=== PATIENT | female | born 1970 | race Caucasian/White ===

== ENCOUNTER 2017-11-10 16:23 | Emergency (ER) | payer OTHER ==
[~2017-11-10] VITALS: Ht 167.6 cm; Wt 90.7 kg
[~2017-11-10 16:23] MED LIST: FLOMAX0.4 MG PO; HYDROCODON-ACE1 EAC7 PO; MELATONIN10 M2 PO; ZOFRAN ODT4 MG PO
[2017-11-10] MEDS ORDERED: NEURONTIN 300300 M1 PO (16:42)
[2017-11-10 17:03] LABS: ABSOLUTE BASOPHILS 0.1 thou/uL (0.0-0.2); ABSOLUTE EOSINOPHILS 0.4 thou/uL (0.0-0.7); ABSOLUTE LYMPHOCYTES 2.8 thou/uL (0.8-5.3); ABSOLUTE MONOCYTES 0.9 thou/uL (0.0-1.2); ABSOLUTE NEUTROPHILS 6.5 thou/uL (1.6-8.1); BASOPHILS 0.8 %; EOSINOPHILS 3.7 %; HEMOGLOBIN 13.5 gm/dL (12.0-15.0); LYMPHOCYTES 26.2 %; MCH 26.2 pg (26.0-34.0); MCHC 32.8 g/dL (28.0-37.0); MCV 79.7 fL (80.0-100.0); MONOCYTES 8.2 %; MPV 7.4 fl. (7.2-11.1); NUCLEATED RBCS 0 /100WBC; PLATELET COUNT* 278 thou/uL (150-400); POLYS 61.1 %; RBC 5.15 mil/uL (4.20-5.00); RDW-CV 17.7 % (10.5-14.5); WBC 10.7 thou/uL (4.0-11.0)
[2017-11-10 17:10] LABS: CALCIUM 9.4 mg/dL (8.5-10.1); CREATININE 0.9 mg/dL (0.6-1.3); POTASSIUM 4.1 mmol/L (3.5-5.1)
[2017-11-10 17:15] LABS: ALBUMIN 3.6 g/dL (3.4-5.0); TOTAL BILIRUBIN 0.2 mg/dL (<0.1-1.0); TOTAL PROTEIN 7.4 g/dL (6.4-8.2)
[2017-11-10 17:32] LABS: URINE BILIRUBIN NEGATIVE (Negative); URINE BLOOD 3+ (Negative); URINE COLOR YELLOW; URINE GLUCOSE-RANDOM NEGATIVE (Negative); URINE KETONES NEGATIVE (Negative); URINE LEUKOCYTES-REFLEX NEGATIVE (Negative); URINE NITRITE-REFLEX NEGATIVE (Negative); URINE PROTEIN NEGATIVE (Negative); URINE SPECIFIC GRAVITY 1.015 (1.005-1.030); URINE UROBILINOGEN 0.2 E.U./dl (0.2-1.0)
[2017-11-10 17:36] LABS: URINE CLARITY HAZY
[2017-11-10 17:40] LABS: BACTERIA-REFLEX 1-9 Few /HPF (None Seen); CASTS None Seen /LPF (None Seen); SQUAMOUS >10 Many /LPF (0-3); URINE RBC >20 Many /HPF (0-2); URINE WBC-REFLEX 0-5 Rare /HPF (0-5)
[2017-11-10 17:41] LABS: AMORPHOUS URATES Moderate /LPF (None Seen)
[2017-11-10] MEDS ORDERED: NORCO 5-325 TA1 EAC1 PO (18:50)
[2017-11-10 19:24] VITALS: BP 182/77
== END 2017-11-10 19:25 | disposition home or self-care (01) ==
LOC: M.ERS 16:23
PROVIDERS: Nurse Practitioner Family
DX: N20.0 Calculus of kidney (principal); F17.210 Nicotine dependence, cigarettes, uncomplicated

== ENCOUNTER 2018-09-06 13:38 | Emergency (ER) | payer OTHER ==
[~2018-09-06] VITALS: Ht 167.6 cm; Wt 90.7 kg
[~2018-09-06 13:38] MED LIST changes: +NEURONTIN 300300 M1 PO; +NORCO 5-325 TA1 EAC1 PO
[2018-09-06] MEDS ORDERED: ZANTAC 150MG T150 MG PO (13:57)
[2018-09-06 14:23] LABS: ABSOLUTE BASOPHILS 0.1 thou/uL (0.0-0.2); ABSOLUTE EOSINOPHILS 0.4 thou/uL (0.0-0.7); ABSOLUTE LYMPHOCYTES 3.7 thou/uL (0.8-5.3); ABSOLUTE MONOCYTES 1.1 thou/uL (0.0-1.2); ABSOLUTE NEUTROPHILS 6.8 thou/uL (1.6-8.1); EOSINOPHILS 3.6 %; HEMATOCRIT 45.6 % (37.0-47.0); HEMOGLOBIN 15.7 gm/dL (12.0-15.0); LYMPHOCYTES 30.3 %; MCH 29.8 pg (26.0-34.0); MCHC 34.4 g/dL (28.0-37.0); MCV 86.7 fL (80.0-100.0); MONOCYTES 9.1 %; MPV 8.1 fl. (7.2-11.1); NUCLEATED RBCS 0 /100WBC; PLATELET COUNT* 275 thou/uL (150-400); RBC 5.26 mil/uL (4.20-5.00); RDW-CV 13.3 % (10.5-14.5); WBC 12.2 thou/uL (4.0-11.0)
[2018-09-06 14:36] LABS: ALBUMIN 3.8 g/dL (3.4-5.0); CALCIUM 9.3 mg/dL (8.5-10.1); CREATININE 0.8 mg/dL (0.6-1.3); POTASSIUM 4.7 mmol/L (3.5-5.1); TOTAL BILIRUBIN 0.2 mg/dL (<0.1-1.0); TOTAL PROTEIN 7.9 g/dL (6.4-8.2)
[2018-09-06 15:59] LABS: URINE BILIRUBIN NEGATIVE (Negative); URINE BLOOD 3+ (Negative); URINE CLARITY CLEAR; URINE COLOR YELLOW; URINE GLUCOSE-RANDOM NEGATIVE (Negative); URINE KETONES NEGATIVE (Negative); URINE LEUKOCYTES-REFLEX NEGATIVE (Negative); URINE NITRITE-REFLEX NEGATIVE (Negative); URINE PROTEIN NEGATIVE (Negative); URINE SPECIFIC GRAVITY 1.015 (1.005-1.030); URINE UROBILINOGEN 0.2 E.U./dl (0.2-1.0)
[2018-09-06 16:09] LABS: SQUAMOUS 4-10 Moderate /LPF (0-3)
[2018-09-06 16:10] LABS: CASTS None Seen /LPF (None Seen); CRYSTALS None Seen /LPF (None Seen); MUCUS 4-6 Moderate strn/LPF (None Seen); URINE RBC >20 Many /HPF (0-2); URINE WBC-REFLEX 0-5 Rare /HPF (0-5)
[2018-09-06] MEDS ORDERED: NORCO 10-325 T1 EACH PO (16:27)
[2018-09-06] MEDS ORDERED: PHENERGAN 25 MG25 M1 PO (16:27)
[2018-09-06] MEDS ORDERED: NAPROSYN500 MG PO (16:27)
[2018-09-06] MEDS ORDERED: CIPRO500 MG PO (16:27)
[2018-09-06 16:45] VITALS: BP 118/74
== END 2018-09-06 16:46 | disposition home or self-care (01) ==
LOC: M.ERS 13:38
PROVIDERS: Nurse Practitioner Family
DX: N13.2 Hydronephrosis with renal and ureteral calculous obstruction (principal); F17.200 Nicotine dependence, unspecified, uncomplicated; R11.10 Vomiting, unspecified

== ENCOUNTER 2021-01-21 06:56 | Emergency (ER) | payer OTHER ==
[~2021-01-21] VITALS: Ht 167.6 cm; Wt 69.8 kg
[~2021-01-21 06:56] MED LIST changes: +CARVEDILOL12.5 MG PO; +CIPRO500 MG PO; +GENTAK5 ML INTRAOCULR; +HYDROCODONE-APA1 TA1 PO; +IBUPROFEN 800800 M1 PO; +IBUPROFEN 800800 MG PO; +LISINOPRIL10 MG PO; +NAPROSYN500 MG PO; +NEURONTIN 400400 M1 PO; +NORCO 10-325 T1 EACH PO; +NORCO 5-325 TA1 EAC2 PO; +NORCO 5-325 TA1 EACH PO; +ONDANSETRON HCL4 M2 PO; +PHENERGAN 25 MG25 M1 PO; +ZANTAC 150MG T150 MG PO
[2021-01-21] MEDS ORDERED: CARVEDILOL25 MG PO (07:16)
[2021-01-21 09:13] LABS: ABSOLUTE BASOPHILS 0.1 thou/uL (0.0-0.2); ABSOLUTE EOSINOPHILS 0.5 thou/uL (0.0-0.7); ABSOLUTE LYMPHOCYTES 4.1 thou/uL (0.8-5.3); ABSOLUTE MONOCYTES 0.8 thou/uL (0.0-1.2); ABSOLUTE NEUTROPHILS 6.1 thou/uL (1.6-8.1); BASOPHILS 0.6 %; EOSINOPHILS 4.4 %; HEMATOCRIT 44.1 % (37.0-47.0); LYMPHOCYTES 35.3 %; MCH 30.2 pg (26.0-34.0); MCV 88.8 fL (80.0-100.0); MPV 7.4 fl. (7.2-11.1); NUCLEATED RBCS 0 /100WBC; PLATELET COUNT* 224 thou/uL (150-400); POLYS 52.7 %; RBC 4.96 mil/uL (4.20-5.00); RDW-CV 12.8 % (10.5-14.5); WBC 11.6 thou/uL (4.0-11.0)
[2021-01-21 09:22] LABS: CREATININE 1.3 mg/dL (0.6-1.3)
[2021-01-21 09:26] LABS: ALBUMIN 4.2 g/dL (3.4-5.0); TOTAL BILIRUBIN 0.4 mg/dL (<0.1-1.0); TOTAL PROTEIN 7.8 g/dL (6.4-8.2)
[2021-01-21 10:35] LABS: URINE BILIRUBIN NEGATIVE (Negative); URINE BLOOD TRACE (Negative); URINE CLARITY CLEAR; URINE COLOR YELLOW; URINE GLUCOSE-RANDOM NEGATIVE (Negative); URINE KETONES NEGATIVE (Negative); URINE LEUKOCYTES-REFLEX NEGATIVE (Negative); URINE NITRITE-REFLEX NEGATIVE (Negative); URINE PROTEIN 1+ (Negative); URINE UROBILINOGEN 0.2 E.U./dl (0.2-1.0)
[2021-01-21] MEDS ORDERED: ZOFRAN ODT4 MG DISSOLVE (11:13)
[2021-01-21] MEDS ORDERED: HYDROCODON-ACE1 EAC7 PO (11:13)
[2021-01-21 11:30] VITALS: BP 105/60
--- NOTE | 2021-01-22 10:49 | EKG ---
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
== END 2021-01-21 11:30 | disposition home or self-care (01) ==
LOC: M.ERS 06:56
PROVIDERS: Emergency Medicine Emergency Medical Services
DX: R10.9 Unspecified abdominal pain (principal); M54.5 Low back pain; R11.0 Nausea; Z87.442 Personal history of urinary calculi; Z98.890 Other specified postprocedural states; Z98.51 Tubal ligation status; Z90.89 Acquired absence of other organs; Z88.1 Allergy status to other antibiotic agents

== ENCOUNTER 2021-04-01 14:53 | Emergency (ER) | payer OTHER ==
[~2021-04-01] VITALS: Ht 167.6 cm; Wt 67.1 kg
[~2021-04-01 14:53] MED LIST changes: +CARVEDILOL25 MG PO; +ZOFRAN ODT4 MG DISSOLVE
[2021-04-01] MEDS ORDERED: LIPITOR 20 MG T20 M1 PO (15:22)
[2021-04-01 16:49] VITALS: BP 130/75
== END 2021-04-01 16:50 | disposition home or self-care (01) ==
LOC: M.ERS 14:53
DX: S93.402A Sprain of unspecified ligament of left ankle, initial encounter (principal); Z88.1 Allergy status to other antibiotic agents; Z79.899 Other long term (current) drug therapy; Z98.51 Tubal ligation status; Z98.890 Other specified postprocedural states; X50.1XXA Overexertion from prolonged static or awkward postures, initial encounter; Y93.89 Activity, other specified; Y92.89 Other specified places as the place of occurrence of the external cause; Y99.8 Other external cause status